=== PATIENT | male | born 1990 | race African-American/Black ===

== ENCOUNTER 2022-09-25 18:22 | Emergency (ER) | payer MEDICAID, OTHER ==
[~2022-09-25] VITALS: Ht 172.7 cm; Wt 99.0 kg
[2022-09-25 18:25] VITALS: BP 151/87
[2022-09-25] MEDS ORDERED: KETOROLAC 60MG/2ML VIAL IM ONE (19:15)
[2022-09-25] MEDS ORDERED: IBUP-2029 MT (19:32)
== END 2022-09-25 20:17 | disposition home or self-care (01) ==
LOC: ER 18:22
DX: M79.89 Other specified soft tissue disorders (principal)
CPT/HCPCS: 73610; 96372; 99283; J1885; Z7610

== ENCOUNTER 2024-01-15 23:43 | Emergency (ER) | payer MEDICAID ==
[~2024-01-15] VITALS: Ht 182.9 cm; Wt 98.0 kg
[~2024-01-15 23:43] MED LIST: IBUP-2029 MT
[2024-01-16 00:04] VITALS: O2SAT 98
[2024-01-16 00:27] VITALS: BP 133/73; PULSE 68; RESP 18; TEMP 98; O2SAT 97
[2024-01-16 00:52] LABS: BASOPHILS % 0.9 % (0.0-2.0); EOSINOPHILS % 5.4 % (0.0-5.0); HEMATOCRIT. 42.7 % (42.0-52.0); HEMOGLOBIN. 14.4 g/dL (14.0-18.0); LYMPHOCYTES % 37.6 % (20.0-50.0); MEAN CORPUSCULAR HEMOGLOBIN 30.1 pg (28.0-32.0); MEAN CORPUSCULAR HGB CONC 33.7 g/dL (31.0-37.0); MEAN CORPUSCULAR VOLUME 89.3 fL (80.0-94.0); MEAN PLATELET VOLUME 8.4 fl (7.4-10.4); MONOCYTES % 9.7 % (2.0-8.0); NEUTROPHILS % 46.4 % (40.0-76.0); PLATELET 202 x1000/uL (130-400); RED BLOOD CELL COUNT 4.78 mill/uL (4.7-6.1); RED CELL DISTRIBUTION WIDTH 13.9 % (11.6-14.6); WHITE BLOOD COUNT 3.3 x1000/uL (4.5-11.0)
[2024-01-16 00:57] LABS: CHLORIDE 107 mEq/L (98-107); POTASSIUM 3.8 mEq/L (3.5-5.1); SODIUM 140 mEq/L (136-145)
[2024-01-16 00:58] LABS: CALCIUM 9.7 mg/dL (8.7-10.4); CARBON DIOXIDE 25 mEq/L (21-32)
[2024-01-16 01:03] LABS: CREATININE 1.1 mg/dL (0.6-1.3); GLUCOSE 87 mg/dL (70-105); UREA NITROGEN BLOOD 11 mg/dL (9-23)
[2024-01-16 01:04] LABS: TROPONIN I HIGH SENSITIVITY 4 ng/L (3.0-53)
== END 2024-01-16 02:30 | disposition home or self-care (01) ==
LOC: ER 01-16 00:11
DX: R07.89 Other chest pain (principal)
CPT/HCPCS: 36415; 71045; 80048; 84484; 85025; 85379; 93005; 99285